=== PATIENT | male | born 1935 | race Caucasian/White ===

== ENCOUNTER 2018-09-29 21:30 | Inpatient (IN) | payer MEDICARE ==
[~2018-09-29] VITALS: Ht 177.8 cm; Wt 86.4 kg
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
[2018-09-30] MEDS ORDERED: BAYER CHEWABLE81 MG PO (01:58)
[2018-09-30] MEDS ORDERED: BUSPAR5 MG PO (01:59)
[2018-09-30] MEDS ORDERED: CARDIZEM CD120 MG PO (02:06)
[2018-09-30] MEDS ORDERED: CALCIUM D PO (02:06)
[2018-09-30] MEDS ORDERED: COENZYME Q1030 MG PO (02:07)
[2018-09-30] MEDS ORDERED: CELEXA20 MG PO (02:07)
[2018-09-30] MEDS ORDERED: DEPAKOTE125 MG PO (02:08)
[2018-09-30] MEDS ORDERED: FLOMAX0.4 MG PO (02:08)
[2018-09-30] MEDS ORDERED: IPRAT-ALBUT 0.5-3 ML UPD (02:10)
[2018-09-30] MEDS ORDERED: APRISO0.375 GM PO (02:12)
[2018-09-30] MEDS ORDERED: TYLENOL ER PO ×2 (02:14→02:15)
--- NOTE | 2018-09-30 03:30 | NUR ---
NEW ADMIT TO DOCTOR SUE ON [facility] FROM [facility] FOR AGGRESSION. PATIENT WAS COMBATIVE WITH STAFF AND OTHER RESIDENTS AT [facility]. PATIENT TRANSPORT TO [facility] ON [facility] VIA EMS. UPON ARRIVAL TO [facility], PATIENT WAS CALM AND COOPERATIVE WITH CARE AND ADMISSION ASSESSMENTS. CONSENT TO TREAT RECEIVED FROM SYDNEE ALBARRAN. CODE WORD IS ANNIE. CODE STATUS IS DNR. PATIENT RESTING IN BED WITH EYES CLOSED AT THIS TIME.
[2018-09-30 04:42] VITALS: BP 140/90
[2018-09-30 05:47] VITALS: BP 140/90
[2018-09-30 07:27] LABS: BASOPHILS 0.4 % (0-2); EOSINOPHILS 3.4 % (0-7); HEMOGLOBIN 12.6 g/dL (13.5-17.5); IMMATURE GRANULOCYTES 0.3 % (0-5); LYMPHOCYTES 27.5 % (15-50); MCHC 30.7 g/dL (31.0-37.0); MCV 84.5 fL (80.0-100.0); MEAN PLATELET VOLUME 11.8 fL (7.4-10.4); MONOCYTES 8.6 % (2-11); NEUTROPHILS 59.8 % (40-80); PLATELET COUNT 274 10x3/uL (130-400); RBC 4.85 10x6/uL (4.20-6.10); RDW 16.2 % (11.5-14.5); WBC 7.8 10x3/uL (4.8-10.8)
[2018-09-30 07:48] LABS: ALBUMIN 2.9 g/dL (3.4-5.0); ANION GAP 8.3 mmol/L (8-16); BILIRUBIN - TOTAL 0.34 mg/dL (0.2-1.3); CARBON DIOXIDE 34.2 mmol/L (21.0-32.0); CHOL - HDL RATIO 4.6 ratio (2.3-4.9); CREATININE - SERUM 1.1 mg/dL (0.6-1.3); LDL-HDL RATIO 2.8 ratio (1.5-3.5); POTASSIUM - SERUM 4.5 mmol/L (3.5-5.1); PROTEIN - SERUM 7.9 g/dL (6.4-8.2); THYROID STIMULATING HORMONE 2.73 uIU/mL (0.36-3.74); VALPROIC ACID (DEPAKOTE) 17.8 ug/mL (50.0-100.0)
[2018-09-30 08:30] VITALS: BP 127/80
--- NOTE | 2018-09-30 10:07 | NUR ---
RECEIVED PATIENT IN DINING ROOM FOR B'FAST, ALERT, CALM, CONFUSED, NO AGGRESSION NOTED. NO MED ORDERS AT THIS TIME. COOPERATIVE WITH STAFF AND CARE.
[2018-09-30 19:58] VITALS: BP 132/72
--- NOTE | 2018-10-01 04:28 | NUR ---
B) Patient is alert and oriented to person, calm and cooperative, pleasant toward staff, follows instructions, I) Administered scheduled medications as ordered, monitored for safety R) Mediation compliant, pleasant toward staff P) Continue plan of care.
[2018-10-01 06:16] LABS: VITAMIN D 25 HYDROXY 28.7 ng/mL (30.0-100.0)
[2018-10-01 07:31] LABS: RAPID PLASMA REAGIN Non Reactive (Non Reactive)
[2018-10-01 08:30] VITALS: BP 171/103
--- NOTE | 2018-10-01 09:00 | NUR ---
REPORT RECEIVED AND CARE ASSUMED. CALM AND COOPERATIVE WITH CARE AND ASSESSMENT. WILL CONTINUE PLAN OF CARE.
[2018-10-01 09:19] LABS: FOLATE (FOLIC ACID) - SERUM 13.5 ng/mL (>3.0)
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
[2018-10-01 17:53] LABS: APPEARANCE HAZY (CLEAR); BILIRUBIN NEGATIVE (NEGATIVE); COLOR YELLOW (YELLOW); GLUCOSE NEGATIVE (NEGATIVE); KETONE NEGATIVE (NEGATIVE); NITRITE POSITIVE (NEGATIVE); PROTEIN NEGATIVE (NEGATIVE); UROBILINOGEN NORMAL (NORMAL)
[2018-10-01 17:54] LABS: BACTERIA MANY /hpf (NONE SEEN); RED CELLS - URINE OCC /hpf (0-5)
[2018-10-01 20:20] VITALS: BP 152/95
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
[2018-10-02 10:16] VITALS: BP 118/75
--- NOTE | 2018-10-02 11:43 | NUR ---
B) The patient is awake and alert. He is pleasant, he is confused. He knows his name, but he is talking nonsensical. Right now he has not shown any aggression. He has not shown any sexually inappropriate behvior this am, but he did tell Estefania Verde RN that she is pretty and very intelligent. I) Provide prescribed meds. Redirect to unit milieu. R) The patient is compliant with meds. P) Continue POC.
--- NOTE | 2018-10-02 15:31 | PN ---
PATIENT:KAYLEE CAMPUZANO MEDICAL RECORD: [id number] LOCATION:ERICA Kay ADMISSION DATE: 09/29/18 PROGRESS NOTE DATE OF SERVICE: 10/01/2018 SUBJECTIVE: The patient's case was discussed with staff. He has no new complaint. OBJECTIVE: The patient is in good behavioral control with limited insight about his condition. He has been somewhat verbally aggressive with the staff, but nothing that has required medications. ASSESSMENT: Senile dementia of Alzheimer's type with behavioral disturbances. PLAN: The patient is going to be taken off of his Depakote. He will be maintained on other medications. TRANSINT:[id number] Voice Confirmation ID: [id number] DOCUMENT ID: [id number] MARLYN SUE MD at 1531 CC: [id number] DICTATION DATE: 10/01/18 170 CAREER MANAGER: 10/01/18 194 ADM IN [facility] [address] [place] [address]
--- NOTE | 2018-10-02 16:18 | NUR ---
OBSERVED HALLUCINATING.REACHING OUT TO GET SOMETHING THAT IS NOT THERE,AND TALKING TO SOMEONE WHO CAN NOT BE SEEN.
[2018-10-02 19:42] VITALS: BP 136/73
--- NOTE | 2018-10-03 03:51 | NUR ---
B) patient is alert and oriented to self, calm and pleasant toward staff, very confused and unaware I) Administered scheduled medications as ordered, monitored for safety R) Mediation compliant, sleeping quietly in his bed now, P) Continue plan of care.
[2018-10-03 09:25] VITALS: BP 108/73
[2018-10-03 11:02] VITALS: Ht 177.8 cm; Wt 86.4 kg
--- NOTE | 2018-10-03 11:53 | NUR ---
Obtained flu A & B swab.
--- NOTE | 2018-10-03 12:00 | NUR ---
The patient is negative for flu A & B.
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
--- NOTE | 2018-10-03 13:24 | NUR ---
The patient is threatening to leave and yesenia the staff for holding him here, tried to explain that he is in the hospital and the DrJoyce has to release him, he is becoming more irritable, stating he will leave out the door by force. Did provide Geodon 10 mg IM now.
--- NOTE | 2018-10-03 13:27 | NUR ---
The patient has been exposed to the flu so his medical Dr. Cortez has prescribed Tamilflu prophylactically.
--- NOTE | 2018-10-03 14:08 | NUR ---
Nutrition Follow Up: Chart reviewed. Diet: Regular Mech Soft with [place] Thick Liquids PO Intake: 24% meal avg BM: 10/02/18 Meds and labs reviewed Rec continue regular diet with LONGSHORE EQUIPMENT OPERATOR recs for consistencies. Rec consider an appetite stimulant. Will continue to honor food preferences and provide supplements prn. RD following.
--- NOTE | 2018-10-04 02:21 | NUR ---
B) Patient is alert and oriented to self, calm social with staff, I) Offered scheduled medications as ordered, redirected as needed, R) Refused all HS medications, resting now quietly in his bed, P) Continue plan of care.
[2018-10-04 08:39] VITALS: BP 130/73
--- NOTE | 2018-10-04 10:25 | NUR ---
B) The patient is pleasant this am, he is aggreeable to take his morning medication, he refused his eye drops. He is self propelling in his wheelchair. He said "I don't know who I am or where I am going." He has not made any sexually inappropriate statements today and he has not been hallucinating this am. I) Provide prescribed meds. R) The patient is calm at this time. P) Continue POC.
--- NOTE | 2018-10-04 11:10 | NUR ---
Patient increasingly aggressive, swinging at staff. Geodon 10 mg admin IM, malachi well.
--- NOTE | 2018-10-04 12:38 | NUR ---
NO FURTHER EPISODES OF AGGRESSION NOTED AT THIS TIME.
[2018-10-04 20:57] VITALS: BP 143/95
--- NOTE | 2018-10-05 03:33 | NUR ---
B) Patient is alert and oriented to self, combative with staff at times during care, I) Administered scheduled medications as ordered, redirected as needed, monitored for safety R) Medication compliant, sleeping now in his bed, P) Continue plan of care.
--- NOTE | 2018-10-05 08:00 | NUR ---
PT IS PLEASANT THIS MORNING. CALM AND COOPERATIVE WITH ASSESSMENT. REDIRECT AND REORIENT NEEDED. PRESCRIBED MEDS PROVIDED. MED COMPLIANT. FALL PRECAUTIONS IN PLACE. NO AGGRESSION NOTED AT THIS TIME. WILL CONTINUE TO MONITOR Q 15 MINUTES FOR SAFETY. WILL CPOC.
[2018-10-05 23:36] VITALS: BP 150/90
[2018-10-06 07:53] VITALS: BP 135/80
--- NOTE | 2018-10-06 13:22 | NUR ---
B) PT IS PLEASANT. CALM AND COOPERATIVE WITH ASSESSMENT. I) PRESCRIBED MEDS PROVIDED R) MED COMPLIANT P) WILL CPOC
[2018-10-06 22:18] VITALS: BP 140/80
--- NOTE | 2018-10-07 00:25 | NUR ---
PATIENT IS VERY CONFUSED. COMBATIVE AT TIMES, COMPLIANT WITH MEDS, NO ADVERSE SIDE EFFECTS
--- NOTE | 2018-10-07 08:30 | NUR ---
AWAKE AND ALERT, CALM AND COOPERATIVE WITH CARE AND ASSESSMENT. ADMINISTER SCHEDULED MEDS. COMPLIANT WITH TAKING MEDS. NO AGGRESSION NOTED. WILL CONTINUE TO MONITOR.
[2018-10-07 08:47] VITALS: BP 143/77
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
[2018-10-07 19:49] VITALS: BP 100/65
--- NOTE | 2018-10-08 04:27 | NUR ---
B) Patient is alert and oriented to person, calm and cooperative this shift, no aggression noted, I) Administered scheduled medications as ordered, monitored for behaviors, R) Mediation compliant, follows instructions P) Continue plan of care.
[2018-10-08 08:12] VITALS: BP 125/71
--- NOTE | 2018-10-08 09:00 | NUR ---
B) PATIENT IS ALERT AND PLEASANT, CALM AND COOPERATIVE WITH ASSESSMENT. I) PRESCRIBED MEDS PROVIDED. R) COMPLIANT WITH MEDS. P) WILL CONTINUE PLAN OF CARE.
--- NOTE | 2018-10-08 13:37 | NUR ---
NUTRITION F/U CHART REVIEWED. PT TOLERATING REG MECH SOFT DIET WITH 25 TO 75% INTAKE RECENT MEALS. +BM DOCUMENTED. RD FOLLOWING
[2018-10-08 19:53] VITALS: BP 138/90
--- NOTE | 2018-10-09 01:35 | NUR ---
B) Patient is alert and oriented to self, very confused and combative with staff, climbing out of his chair and putting himself in the floor, I) Administered scheduled medications as ordered, monitored for safety, redirected as needed, R) Mediation compliant, difficult and restless, sleeping now, P) Continue plan of care.
--- NOTE | 2018-10-09 10:00 | NUR ---
RECEIVED PATIENT IN DINING ROOM FOR B'FAST, ALERT, CALM, COOPERATIVE. NO INAPPROPRIATE BEHAVIOR NOTED. MEDS ADMIN PER ORDERS WITH COMPLETE MED COMPLIANCE NOTED. COOPERATIVE WITH GROUP AND STAFF REQUESTS. RESPONDS BETTER TO MALE RE-DIRECTION OPPOSED TO THAT OF FEMALE STAFF. CONT POC INCLUDING MEDS AND GROUP THERAPY DIRECTED.
--- NOTE | 2018-10-09 14:06 | NUR ---
PATIENT AGGRESSIVE, HITTING AT STAFF, CURSING, UNDRESSING IN DAYROOM AND REFUSING TO PUT SHIRT ON. GEODON 5 MG ADMIN IM FOR ANXIETY/AGGRESSION.
--- NOTE | 2018-10-09 15:10 | NUR ---
RESTING QUIETLY IN RECLINER, DROWSY, DENIES NEEDS.
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
--- NOTE | 2018-10-10 03:03 | NUR ---
B) Patient is alert and oriented to self, combative with staff during care at times, I) Administered scheduled medications as ordered, redirected as needed, R) Mediation compliant, difficult at times, P) Continue plan of care.
[2018-10-10 09:15] VITALS: BP 140/72
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
--- NOTE | 2018-10-11 00:55 | NUR ---
PATIENT IS VERY CONFUSED. AGGRESSIVE AT TIMES, PATIENT CAN NOT VOICE NEEDS OR CONCERNS. INCONTINENT. COMPLIANT WITH MEDS, NO ADVERSE REACTION NOTED. WILL FOLLOW POC
[2018-10-11 08:00] VITALS: BP 132/78
--- NOTE | 2018-10-11 08:37 | NUR ---
OBTAINED URINE VIA IN AND OUT CATH, HE TOLERATED IT WELL. HE REMAINS CONFUSED, HE IS A TOTAL LIFT. HE HAS A GOOSE EGG ON HIS FOREHEAD AND HE HAS BRUISES TO HIS FINGERS. PROVIDE PRESCRIBED MEDS. THE PATIENT IS RESTING IN A JOSI CHAIR, BUT HE IS CONFUSED AND TRIED TO GET UP AND WALK. CONTINUE POC.
[2018-10-11 08:49] LABS: APPEARANCE CLEAR (CLEAR); BILIRUBIN NEGATIVE (NEGATIVE); COLOR YELLOW (YELLOW); GLUCOSE NEGATIVE (NEGATIVE); KETONE SMALL mg/dL (NEGATIVE); NITRITE NEGATIVE (NEGATIVE); PROTEIN NEGATIVE (NEGATIVE); UROBILINOGEN NORMAL (NORMAL)
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
--- NOTE | 2018-10-11 12:52 | PN ---
PATIENT:KAYLEE CAMPUZANO MEDICAL RECORD: [id number] LOCATION:AdolfoFAVIO Kay ADMISSION DATE: 09/29/18 PROGRESS NOTE DATE OF SERVICE: 10/10/2018 SUBJECTIVE: Mr. Campuzano is an 83-year-old gentleman from [place] who had become combative with staff, sexually inappropriate, hallucinating, although we have not seen evidence of hallucinating nor sexual inappropriateness times many days. He does continue to be intermittently aggressive almost requiring p.r.n. yesterday, although having a better day today. On interview, he is eating and waves back at me, but does not attempt to initiate conversation or respond to my questions. He is eating 20, 85, and 10%. Last bowel movement , sleeping 8 hours. OBJECTIVE: VITAL SIGNS: Latest; 97.3, 68, 20, 140/72, and 95%. ASSESSMENT: Unchanged. PLAN: Depakote increased to 500 mg b.i.d. yesterday. Repeat UA is pending. We will continue to monitor behaviors, await response to recent increase in medicines. The UTI has cleared. Case discussed with nursing, chart reviewed. The patient interviewed. TRANSINT:[id number] Voice Confirmation ID: [id number] DOCUMENT ID: [id number] BRODY CRAVEN MD at 1252 CC: [id number] DICTATION DATE: 10/10/18 1437 DURABLE MEDICAL EQUIPMENT REPAIRER: 10/10/18 2137 ADM IN [id number] [place] [address]
--- NOTE | 2018-10-11 13:21 | NUR ---
THE PATIENT IS TALKING AND HE IS MORE ALERT. HE HAS NOT SHOWN ANY AGGRESSION TODAY, HE IS CALM, HE IS LETTING STAFF FEED HIM. HE IS TAKING HIS MEDICATION. HE DOES TRY TO GET UP OUT OF HIS CHAIR ALONE, HE FORGETS THAT HE IS NOT ABLE TO WALK ON HIS OWN RIGHT NOW. CONTINUE POC.
[2018-10-11 20:52] VITALS: BP 130/85
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
[2018-10-12 07:43] VITALS: BP 100/66
--- NOTE | 2018-10-12 17:30 | NUR ---
HAS SLEPT ALOT TODAY.SPOONFED PER STAFF.MEDS CRUSHED AND TAKEN IN APPLESAUCE. HAS NOT BEEN COMBATIVE TODAY.WILL CONTINUE WITH PLAN OF ARE,MONITOR FOR CHANGES AND SAFETY.
[2018-10-12 20:24] VITALS: BP 130/83
--- NOTE | 2018-10-13 03:14 | NUR ---
B) Given HS medications crushed in choclate pudding. Has been nonverbal this evening, opens eyes in response to his name being called but has not spoken any words. Fidgety and restless early part of shift. Has been sleeping well. I) Provide ADL care, encourage patient to speak and express himself, attempt to educate patient on his medications. R) Flat affect, quiet, non-verbal, total care patient. Does not do anything for himself. P) Continue to provide care as noted in patient's plan of care.
[2018-10-13 07:29] VITALS: BP 115/64
--- NOTE | 2018-10-13 10:30 | NUR ---
PATIENT IS ALERT WITH CONFUSION NOTED. CALM AND COOPERATIVE WITH CARE AND ASSESSMENT. SITTING IN DAYYROOM RESTING QUIETLY. COMPLIANT WITH TAKING MEDICATIONS. REDIRECT AND REORIENT NEEEDED. WILL CPOC.
--- NOTE | 2018-10-13 13:16 | PN ---
PATIENT:KAYLEE CAMPUZANO MEDICAL RECORD: [id number] LOCATION:[facility] ADMISSION DATE: 09/29/18 PROGRESS NOTE DATE OF SERVICE: 10/03/2018 SUBJECTIVE: The patient's case was discussed with staff. He has no new complaint. OBJECTIVE: The patient is in good behavioral control with limited insight about his condition. He does tolerate his medicines well. ASSESSMENT: No change in diagnoses. PLAN: The patient will be treated with a higher dose of Neurontin. He has tolerated the initial dose well. 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 TRANSINT:[id number] Voice Confirmation ID: [id number] DOCUMENT ID: [id number] MARLYN SUE MD at 1316 CC: [id number] DICTATION DATE: 10/03/18 1341 GLASS LOADING EQUIPMENT TENDER: 10/03/18 1423 ADM IN [place] [id number] [place] [address]
--- NOTE | 2018-10-14 04:13 | NUR ---
B) Patient is alert and oriented to self, very confused, nonambulatory I) Administered scheduled medications as ordered, monitored for safety R) Mediation compliant, resting quietly in bed, P) Continue plan of care.
--- NOTE | 2018-10-14 06:47 | PN ---
PATIENT:KAYLEE CAMPUZANO MEDICAL RECORD: [id number] LOCATION:[facility] ADMISSION DATE: 09/29/18 PROGRESS NOTE DATE OF SERVICE: 10/13/2018 SUBJECTIVE: The patient's case was discussed with staff. He has no new complaint. OBJECTIVE: The patient is not eating very well with pretty limited insight about his situation. He is not underweight, but obviously this is something that could not continue senior care. ASSESSMENT: Senile dementia of the Alzheimer's type with behavioral disturbances. PLAN: The patient is taking Megace for his appetite stimulation. I am going to maintain this. He is taking Depakote at a reasonable dose and had a therapeutic blood level just a few days ago. TRANSINT:[id number] Voice Confirmation ID: [id number] DOCUMENT ID: [id number] MARLYN SUE MD at 0647 CC: [id number] DICTATION DATE: 10/13/181741 BUNCHER MACHINE: 10/13/182009 ADM IN [facility] [address] [place] [address]
[2018-10-14] MEDS ORDERED: SENNA8.6 MG PO (07:15)
[2018-10-14] MEDS ORDERED: DEPAKOTE500 MG PO (07:15)
[2018-10-14] MEDS ORDERED: XANAX0.25 MG PO (07:15)
[2018-10-14] MEDS ORDERED: GABAPENTIN100 MG PO (07:15)
[2018-10-14] MEDS ORDERED: VITAMIN D5000 UNIT PO (07:16)
[2018-10-14] MEDS ORDERED: MEGACE40 MG PO (07:16)
[2018-10-14 07:47] VITALS: BP 138/74
[2018-10-14 07:49] LABS: BASOPHILS 0.3 % (0-2); EOSINOPHILS 3.2 % (0-7); HEMATOCRIT 39.6 % (42.0-54.0); HEMOGLOBIN 12.8 g/dL (13.5-17.5); IMMATURE GRANULOCYTES 0.3 % (0-5); LYMPHOCYTES 27.5 % (15-50); MCH 26.3 pg (26.0-34.0); MCHC 32.3 g/dL (31.0-37.0); MCV 81.5 fL (80.0-100.0); MEAN PLATELET VOLUME 11.2 fL (7.4-10.4); MONOCYTES 11.8 % (2-11); NEUTROPHILS 56.9 % (40-80); RBC 4.86 10x6/uL (4.20-6.10); RDW 16.6 % (11.5-14.5); WBC 6.3 10x3/uL (4.8-10.8)
[2018-10-14 07:51] LABS: PLATELET COUNT 186 10x3/uL (130-400)
[2018-10-14 08:06] LABS: ANION GAP 11.9 mmol/L (8-16); CALCIUM 8.6 mg/dL (8.5-10.1); CARBON DIOXIDE 28.4 mmol/L (21.0-32.0); CREATININE - SERUM 1.1 mg/dL (0.6-1.3); POTASSIUM - SERUM 3.3 mmol/L (3.5-5.1); VALPROIC ACID (DEPAKOTE) 54.1 ug/mL (50.0-100.0)
--- NOTE | 2018-10-14 14:00 | NUR ---
PATIENT IS ALERT WITH CONFUSION NOTED. CALM AND COOPERATIVE WITH CARE AND ASSESSMENT. COMPLIANT WITH MEDICATIONS CRUSHED IN APPLESAUCE. CPOC.
--- NOTE | 2018-10-15 03:17 | NUR ---
RECEIVED IN HALLWAY OUTSIDE OF NURSES STATION. RESTING IN RECLINER WITH EYES OPEN. CALM AND COOPERATIVE [facility] CARE AND ASSESSMENT. NO SIGNS OF AGGRESSION. NO SEXUALLY INAPPROPRIATE STATEMENTS MADE THIS EVENING. REDIRECT AND REORIENT NEEDED. RESTING IN BED WITH EYES CLOSED AT THIS TIME. CONTINUE PLAN OF CARE.
--- NOTE | 2018-10-15 08:30 | NUR ---
PATIENT IS ALERT AND AWAKE WITH CONFUSION NOTED. CALM AND COOPERATIVE WITH CARE AND ASSESSMENT. NO AGGRESSION NOTED. WILL CONTINUE POC.
[2018-10-15 09:06] VITALS: BP 133/79
--- NOTE | 2018-10-15 10:04 | NUR ---
Nutrition Follow Up: Chart reviewed Diet: Regular Mech Soft with [place] Thick Liquids PO Intake: 18% meal avg BM: 10/15/18 Labs reviewed Meds noted including Megace Rec continue regular diet with RAIL OPERATOR recs for consistencies. Will order Ensure TID. RD following.
--- NOTE | 2018-10-15 13:51 | PN ---
PATIENT:KAYLEE CAMPUZANO MEDICAL RECORD: [id number] LOCATION:[facility] ADMISSION DATE: 09/29/18 PROGRESS NOTE DATE OF SERVICE: 10/14/2018 SUBJECTIVE: The patient's case was discussed with staff. He has no new complaint. OBJECTIVE: The patient denies intent to harm himself or others. He generally tolerates his medicines well. He is participating in treatment reasonably well. ASSESSMENT: Senile dementia of the Alzheimer's type with behavioral disturbances. PLAN: The patient will be maintained on current medicines, which I have reviewed. I am going to increase the dose of the Neurontin slightly. His long-term prognosis is guarded. TRANSINT:[id number] Voice Confirmation ID: [id number] DOCUMENT ID: [id number] MARLYN SUE MD at 1351 CC: [id number] DICTATION DATE: 10/14/18 07 REGULATOR PIN INSERTER: 10/14/18 1111 ADM IN [place] [id number] [place] [id number]
--- NOTE | 2018-10-15 14:37 | NUR ---
SW CALLED TO SPEAK TO PT'S SON, DR. CAMPUZANO, TO DISCUSS DISCHARGE TODAY AT 330. SON VERBALIZED UNDERSTANDING.
--- NOTE | 2018-10-15 15:30 | NUR ---
DISCHARGE PAPERWORK COMPLETED. LEFT HOSPITAL [facility]IA [facility] [place]. CALM AND COOPERATIVE.
--- NOTE | 2018-10-17 14:13 | PN ---
PATIENT:KAYLEE CAMPUZANO MEDICAL RECORD: [id number] LOCATION:[facility] ADMISSION DATE: 09/29/18 PROGRESS NOTE DATE OF SERVICE: 10/15/2018 SUBJECTIVE: The patient's case was discussed with staff. He has no new complaint. OBJECTIVE: The patient is in good behavioral control. He has very limited insight about his condition and does tolerate his medicines well. ASSESSMENT: No change in diagnoses. PLAN: I anticipate the patient can be transitioned out of the hospital tomorrow. Long-term prognosis is guarded. TRANSINT:[id number] Voice Confirmation ID: [id number] DOCUMENT ID: [id number] MARLYN SUE MD at 1413 CC: [id number] DICTATION DATE: 10/15/18 1546 DISTRIBUTION OPERATIONS SUPERVISOR: 10/15/18 2254 DIS IN 10/15/18 [place] [address] [id number] [place] [address]
== END 2018-10-15 15:30 | DRG 57 ==
LOC: D.PSYCH 21:30 → UNDOADMIN 23:30 → D.PSYCH 09-30 00:59 → UNDOADMIN 09-30 00:59 → D.PSYCH 10-15 15:30
PROVIDERS: Family Medicine; ADMIT Psychiatry & Neurology Psychiatry; ATTEND Psychiatry & Neurology Psychiatry
DX: G30.1 Alzheimer's disease with late onset (principal); F02.81 Dementia in other diseases classified elsewhere, unspecified severity, with behavioral disturbance; K51.90 Ulcerative colitis, unspecified, without complications; N39.0 Urinary tract infection, site not specified; N40.0 Benign prostatic hyperplasia without lower urinary tract symptoms; K21.9 Gastro-esophageal reflux disease without esophagitis; I10 Essential (primary) hypertension; I25.10 Atherosclerotic heart disease of native coronary artery without angina pectoris; M48.00 Spinal stenosis, site unspecified; F41.8 Other specified anxiety disorders; R13.10 Dysphagia, unspecified; Z85.038 Personal history of other malignant neoplasm of large intestine; E55.9 Vitamin D deficiency, unspecified; K59.00 Constipation, unspecified; H10.9 Unspecified conjunctivitis; Z20.828 Contact with and (suspected) exposure to other viral communicable diseases; K12.1 Other forms of stomatitis; S60.222A Contusion of left hand, initial encounter; X58.XXXA Exposure to other specified factors, initial encounter; R21 Rash and other nonspecific skin eruption